=== PATIENT | female | born 1980 | race Caucasian/White ===

== ENCOUNTER 2020-03-04 15:53 | Emergency (ER) | payer MEDICAID, OTHER ==
[2016-01-04 16:52] VITALS: BP 113/74
[~2020-03-04] VITALS: Ht 170.2 cm; Wt 100.2 kg
[~2020-03-04 15:53] MED LIST: DULO60CA98 PO; LAMO100T5 PO; LAMO200T3 PO
--- NOTE | 2020-03-04 17:42 | PHYS DOC ---
Past History Past Medical History: Seizure Past Surgical History: , Hysterectomy, Tonsillectomy, Tubal ligation, Other Alcohol Use: Rarely Drug Use: None General Adult EDM: Chief Complaint: LACERATION/AVULSION HPI: HPI: Patient is a 40 year old female who presents with above hx and complaints of laceration . Pt. not in room on several checks. 1752.. Rechecked room at 1815 still not in room. Informed pt Eloped. Review of Systems: Review of Systems: Integument: Hx. Complaints of laceration Allergies: Allergies: Allergies Coded Allergies Type Severity Reaction Last Updated Verified levetiracetam Allergy Intermediate gi upset 03/04/20 No levofloxacin Allergy Intermediate rash 03/04/20 No Physical Exam: PE: Pt. eloped before exam or history Current Patient Data: Vital Signs: Vital Signs Date Time Temp Pulse Resp B/P (MAP) Pulse Ox O2 Delivery O2 Flow Rate FiO2 03/04/20 16:07 98.1 93 18 118/73 (88) 95 Room Air EKG: EKG: [] Radiology/Procedures: Radiology/Procedures: [] Heart Score: Risk Factors: Risk Factors: DM, Current or recent (<one month) smoker, HTN, HLP, family history of CAD, obesity. Risk Scores: Score 0 - 3: 2.5% MACE over next 6 weeks - Discharge Home Score 4 - 6: 20.3% MACE over next 6 weeks - Admit for Clinical Observation Score 7 - 10: 72.7% MACE over next 6 weeks - Early Invasive Strategies Course & Med Decision Making: Course & Med Decision Making Pertinent Labs and Imaging studies reviewed. (See chart for details) Pt. Eloped before exam or history [] Tawnya Disclaimer: Tawnya Disclaimer: This electronic medical record was generated, in whole or in part, using a voice recognition dictation system. Departure Departure: Disposition: 01 DC HOME SELF CARE/HOMELESS Condition: STABLE Referrals: HEIDI MATA MD (PCP) Tawnya Disclaimer This chart was dictated in whole or in part using Voice Recognition software in a busy, high-work load, and often noisy Emergency Department environment. It may contain unintended and wholly unrecognized errors or omissions. MARY STEELE MD Mar 04, 2020 17:42
== END 2020-03-04 17:30 | disposition home or self-care (01) ==
LOC: ER 15:53
DX: S61.412A Laceration without foreign body of left hand, initial encounter (principal); Z53.21 Procedure and treatment not carried out due to patient leaving prior to being seen by health care provider; Z88.1 Allergy status to other antibiotic agents; Z88.8 Allergy status to other drugs, medicaments and biological substances; W26.0XXA Contact with knife, initial encounter; Y93.89 Activity, other specified; Y92.89 Other specified places as the place of occurrence of the external cause; Y99.8 Other external cause status

== ENCOUNTER 2020-11-11 12:55 | Emergency (ER) | payer MEDICAID ==
[~2020-11-11] VITALS: Ht 170.2 cm; Wt 108.6 kg
--- NOTE | 2020-11-11 13:37 | PHYS DOC ---
Past History Past Medical History: Seizure Additional Past Medical Histor: celiac spru (PEYTON JOSEPH APRN) Past Surgical History: , Hysterectomy, Other Additional Past Surgical Histo: right leg (PEYTON JOSEPH APRN) Alcohol Use: None Drug Use: None (PEYTON JOSEPH APRN) General Adult EDM: Chief Complaint: TREMORS HPI: HPI: Patient is a 40-year-old female who presents to the ER today for tremors. Patient reports that she has had total body tremors that occur with purposeful movement for 1 month. Patient gives the example of when she tries to hold something she starts to get tremors. Patient reports that her tremors caused her to fall on October 27. She did break her leg following the fall was seen at [facility] and had surgery. She has a follow-up appointment on November 17 with orthopedic surgeon. Patient has dressings to her right leg and that leg is immobile at this time. Patient was seen yesterday at [facility] for similar complaints. She had blood drawn and was told to follow-up with a neurologist, and was given follow-up information on the neurologist. Patient states she wants to be evaluated because she continues to have tremors. While in the ER during my assessment patient does not have any tremors. Patient does have a history of seizures but states these tremors are not like her seizure activity. Patient denies lightheadedness, unilateral weakness, chest pain, shortness of breath. (PEYTON JOSEPH APRN) Review of Systems: Review of Systems: 14 body systems of the review of systems have been reviewed. See HPI for pertinent positive and negative responses, otherwise all other systems are negative, nonpertinent or noncontributory (PEYTON JOSEPH APRN) Allergies: Allergies: Allergies Coded Allergies Type Severity Reaction Last Updated Verified levetiracetam Allergy Intermediate gi upset 11/11/20 No levofloxacin Allergy Intermediate rash 11/11/20 No (PEYTON JOSEPH APRN) Physical Exam: PE: Constitutional: Well developed, well nourished, no acute distress, non-toxic appearance, no visible tremors [] HENT: Normocephalic, atraumatic, bilateral external ears normal, nose normal. [] Eyes: PERRLA, 3 mm bilaterally, EOMI, conjunctiva normal, no discharge. [] Neck: Normal range of motion, no tenderness, supple, no stridor. [] Cardiovascular:Heart rate regular rhythm, no murmur [] Lungs & Thorax: Bilateral breath sounds clear to auscultation [] Abdomen: Bowel sounds normal, soft, no tenderness, no masses, no pulsatile masses. [] Skin: Warm, dry, no erythema, no rash. Right leg: Patient has dressings noted to right leg from knee down to ankle. The dressings are intact. There are no signs of infection (no redness, warmth, drainage). Patient does have 2+ pitting edema to that extremity with ecchymosis given the stage of ecchymosis is most likely from the surgical procedure. 2+ DP and PT pulses. Right right lower extremity is neurologically intact with limited range of motion of knee due to surgical procedure, patient able to move ankle and toes. [] Back: No tenderness[] Extremities: No tenderness, no cyanosis, no clubbing, ROM intact, 2+ pitting edema to right lower extremity. [] Neurologic: Alert and oriented X 3, normal motor function, normal sensory function, no focal deficits noted. GCS of 15, negative pronator drift, normal ozgu-oc-flaf of left extremity (right extremity not tested due to immobility), normal zhbdgh-my-ammv test with no tremors, no signs of ataxia, no rest tremor, no rigidity with movements or no bradykinesia, cranial nerves II through XII intact, normal strength and sensation, normal speech [] Psychologic: Affect normal, judgement normal, mood normal. [] (PEYTON JOSEPH APRN) Current Patient Data: Vital Signs: Vital Signs Date Time Temp Pulse Resp B/P (MAP) Pulse Ox O2 Delivery O2 Flow Rate FiO2 11/11/20 13:12 98.1 85 18 107/62 95 Room Air (PEYTON JOSEPH APRN) EKG: EKG: [] (PEYTON JOSEPH APRN) Radiology/Procedures: Radiology/Procedures: [] (PEYTON JOSEPH APRN) Heart Score: C/O Chest Pain: No Risk Factors: Risk Factors: DM, Current or recent (<one month) smoker, HTN, HLP, family history of CAD, obesity. Risk Scores: Score 0 - 3: 2.5% MACE over next 6 weeks - Discharge Home Score 4 - 6: 20.3% MACE over next 6 weeks - Admit for Clinical Observation Score 7 - 10: 72.7% MACE over next 6 weeks - Early Invasive Strategies (PEYTON JOSEPH APRN) Course & Med Decision Making: Course & Med Decision Making Pertinent Labs and Imaging studies reviewed. (See chart for details) Patient is a 40-year-old female being evaluated for tremors that occur to her entire body with purposeful movements that has been going on for 1 month. Patient has already been evaluated at [facility] yesterday for the symptoms and was told to follow-up with neurology. Lab work was performed in the ER. Patient does not have any focal neuro deficits. Lab work and CT scan unremarkable. Patient to follow-up with neurology at [facility] as previously set up. I discussed with patient all findings and diagnostic testing as well as the need to follow-up with PCP for further evaluation and treatment or return to the ER if any new or worsening symptoms. Strict return precautions were also discussed at length. Patient voiced understanding, Dr. Bach also discussed bhavya irizarry's case with her. Patient is hemodynamically stable at the time of disposition.. (PEYTON JOSEPH APRN) Course & Med Decision Making Spoke to patient, casey at bedside, (patient consents to his/her/their knowledge and involvement in pts' medical care) regarding her ED care and concern for tremors. Patient with no neurologic deficits on physical exam. Denies any head injury or daily alcohol use. States she feels as if her legs are going to give out and is scared to go home. Has a wheelchair she has been using to get around. [place] of her right knee and ankle clean/dry/intact with no rash or purulent drainage, healing appropriately. CT head with no acute process. Patient reports she used to follow with neurology Dr. Briseno but states he "canceled my disability," and follows with Dr. Mata as pcp for the epilepsy (reports "tonic-clonic" seizures). Patient was educated that there can be a broad differential involved in sudden onset weakness in extremities -would carlos garza benefit from MRI, neurology and to consider rheumatology outpt, nonemergent, evaluation. Patient with decision-making capacity, no neurologic deficits on exam. Patient was upset because she was told to go to the emergency department"to figure it out." Patient reassured and there are no evident signs of life or limb threatening injury. Patient does not feel as though she needs any long-term care placement. All of her questions were answered. (TORO BACH DO) Tawnya Disclaimer: Tawnya Disclaimer: This electronic medical record was generated, in whole or in part, using a voice recognition dictation system. (PEYTON JOSEPH APRN) Departure Departure: Impression: Primary Impression: Tremor Disposition: HOME / SELF CARE / HOMELESS Condition: GOOD Referrals: HEIDI MATA MD (PCP) ERICA BOB MD Patient Instructions: Tremor Additional Instructions: Thank you for choosing [facility] and allowing me to participate in your care. As we have discussed, your findings indicate no acute findings. Your CT head was negative and your blood work was unremarkable.. As we have discussed, the treatment includes following up with neurology for further testing.. Please follow up with your primary care provider tomorrow regarding your ER visit. If your symptoms worsen or you develop unilateral weakness, dizziness, lightheadedness, falls, speech difficulties, severe headache, worsening of your tremors, please return. Please follow-up with orthopedic surgeon at [facility] on November 17 as scheduled regarding your right leg surgery. EMERGENCY DEPARTMENT GENERAL DISCHARGE INSTRUCTIONS Thank you for coming to [facility] (ED) today and trusting us with you care. We trust that you had a positivie experience in our Emergency Department. If you wish to speak to the department management, you may call the director at [phone]. YOUR FOLLOW UP INSTRUCTIONS ARE FOLLOWS: 1. Do you have a private Doctor? If you do not have a private doctor, please ask for a resource list of physicians or clinics that may be able to assist you with follow up care. 2. The Emergency Physician has interpreted your x-rays. The X-Ray specialist will also review them. If there is a change in the findings, you will be notified in 48 hours when at all possible. 3. A lab test or culture has been done, your results will be reviewed and you will be notified if you need a change in treatment. ADDITIONAL INSTRUCTIONS AND INFORMATION: 1. Your care today has been supervised by a physician who is specially trained in emergency care. Many problems require more than one evaluation for a complete diagnosis and treatment. We recommend that you schedule your follow up appointment as recommended to ensure complete treatment of you illness or injury. If you are unable to obtain follow up care and continue to have a problem, or if your condition worsens, we recommend that you return to the ED. 2. We are not able to safely determine your condition over the phone nor are we able to give sound medical advice over the phone. For these safety reasons, if you call for medical advice we will ask you to come to the ED for further evaluation. 3. If you have any questions regarding these discharge instructions please call the ED at [phone]. SAFETY INFORMATION: In the interest of safety, wellness, and injury prevention; we encourage you to wear your sealbelt, if you smoke; quite smoking, and we encourage family to use a protective helmet for bicycling and other sporting events that present an increased risk for head injury. IF YOUR SYMPTOMS WORSEN OR NEW SYMPTOMS DEVELOP, OR YOU HAVE CONCERNS ABOUT YOUR CONDITION; OR IF YOUR CONDITION WORSENS WHILE YOU ARE WAITING FOR YOUR FOLLOW UP APPOINTMENT; EITHER CONTACT YOUR PRIMARY CARE DOCTOR, THE PHYSICIAN WHOSE NAME AND NUMBER YOU WERE GIVEN, OR RETURN TO THE ED IMMEDIATELY. PEYTON JOSEPH APRN Nov 11, 2020 13:37 TORO BACH DO Nov 11, 2020 16:49
[2020-11-11 14:21] LABS: BASO % 0 % (0-3); EOS # 0.4 x10^3/uL (0.0-0.7); EOS % 4 % (0-3); HEMATOCRIT 37.1 % (36.0-47.0); HEMOGLOBIN 12.2 g/dL (12.0-15.5); LYMPH # 3.4 x10^3/uL (1.0-4.8); LYMPH % 34 % (24-48); MEAN CORPUSCULAR HEMOGLOBIN 31 pg (25-35); MEAN CORPUSCULAR HGB CONC 33 g/dL (31-37); MEAN CORPUSCULAR VOLUME 94 fL (79-100); MONO # 0.8 x10^3/uL (0.0-1.1); MONO % 8 % (0-9); NEUT # 5.3 x10^3uL (1.8-7.7); NEUT % 53 % (31-73); PLATELET COUNT 411 x10^3/uL (140-400); RED BLOOD COUNT 3.94 x10^6/uL (3.50-5.40); WHITE BLOOD COUNT 9.9 x10^3/uL (4.0-11.0)
[2020-11-11 14:31] LABS: ALBUMIN 2.8 g/dL (3.4-5.0); ALBUMIN/GLOBULIN RATIO 0.9 (1.0-1.7); ALK PHOS 99 U/L (46-116); ALT (SGPT) 28 U/L (14-59); AST (SGOT) 39 U/L (15-37); BLOOD UREA NITROGEN 19 mg/dL (7-20); BUN/CREATININE RATIO 13 (6-20); CALCIUM 8.5 mg/dL (8.5-10.1); CARBON DIOXIDE 27 mmol/L (21-32); CREATININE 1.5 mg/dL (0.6-1.0); GFR 38.5; GLUCOSE 119 mg/dL (70-99); TOTAL BILIRUBIN 0.4 mg/dL (0.2-1.0)
--- NOTE | 2020-11-11 15:07 | RAD ---
CT head without contrast: Reason for examination: Tremor for one month. Comparison is made to previous study dated 04/05/2004. Helical images were obtained through the brain with no contrast administered. Exposure: One or more of the following individualized dose reduction techniques were utilized for thi s examination: 1. Automated exposure control 2. Adjustment of the mA and/or kV according to patient size 3. Use of iterative reconstruction technique. Ventricular systems are symmetric and not dilated. No midline shift is seen. There is no evidence of intracranial hemorrhage, acute infarct, mass or edema. There is some decreased density in the left ce rebellar hemisphere anteriorly which was present previously and may reflect some beam hardening artif act. No abnormalities are seen at the orbits. The paranasal sinuses and mastoid air cells are clear. No acute skull abnormality is seen. IMPRESSION: No acute intracranial abnormality evident. Electronically signed by: Bailey Joseph MD (11/11/2020 3:04 PM) [id number]
[2020-11-11 15:08] LABS: POTASSIUM ISTAT 3.6 mmol/L (3.5-5.0); SODIUM ISTAT 141 mmol/L (135-145)
[2020-11-11 15:15] VITALS: BP 108/54
== END 2020-11-11 15:50 | disposition home or self-care (01) ==
LOC: ER 12:55
DX: R25.1 Tremor, unspecified (principal); Z88.1 Allergy status to other antibiotic agents
CPT/HCPCS: 36415; 70450; 80047; 80053; 85025; 99284-25

== ENCOUNTER → 2020-11-30 | Outpatient (CLI) | payer MEDICAID ==
[2020-11-11 15:15] VITALS: BP 108/54
[~2020-11-30] MED LIST changes: +ASCO500C PO; +BACL10TA PO; +BUSP30TA PO; +CELE100C PO; +CHOL10004 PO; +DIVA500T2 PO; +LEVO50TA PO; +MULT-445 PO; +NARA1TAB4 PO; +OMEP20TA63 PO; +OXYC-325 PO; +OXYC10TA PO; +PANT40TA3 PO; +POTA10TA5 PO; +PREG75CA PO; +QUET300T5 PO; +TORS10TA3 PO; +TRAZ150T49 PO; +biotene PO; +calcium PO; +tagamet PO; +vitamin b12 PO
--- NOTE | 2020-11-30 16:12 | RAD ---
EXAM: Right tibia and fibula, 2 views. HISTORY: Fracture fixation. COMPARISON: 11/09/2020 FINDINGS: 2 views of the right tibia and fibula are obtained. There is internal fixation of a mid to distal tibial diaphyseal fracture within intramedullary oneal. There is approximately 1 cortical width displacement along the fracture line. There is also a nondisplaced fracture of the medial malleolus. There are segmental fractures involving the proximal to mid and mid distal fibular diaphysis, with ap proximately 1 cortical width displacement along the fracture lines. There are stable anchors within t he lateral malleolus. There is soft tissue swelling. IMPRESSION: 1. Internal fixation of a tibial diaphyseal fracture. 2. Mildly displaced fibular fractures and nondisplaced medial malleolar fracture. Electronically signed by: Yanely Abraham MD (11/30/2020 4:09 PM) [id number]
== END ==
LOC: RAD 14:21
PROVIDERS: ATTEND Physician Assistant
DX: S82.54XA Nondisplaced fracture of medial malleolus of right tibia, initial encounter for closed fracture (principal); S89.101A Unspecified physeal fracture of lower end of right tibia, initial encounter for closed fracture; X58.XXXA Exposure to other specified factors, initial encounter; Y93.89 Activity, other specified; Y92.89 Other specified places as the place of occurrence of the external cause; Y99.8 Other external cause status
CPT/HCPCS: 73590

== ENCOUNTER → 2020-12-01 | Day surgery (SDC) | payer MEDICAID ==
[~2020-12-01] MED LIST changes: +IPRATRPIUM/ALBUTEROL 0.5/2.5MG 3 ML NEBU. NEB PRN; +IV RINGERS SOLUTION,LACTATED 1,000 ML IV SCH; +LIDOCAINE 2% PF 5 ML VIAL. ONE; +MIDAZOLAM HCL PF 2 MG/2 ML VIAL. IV ONE; +ONDANSETRON PF 4 MG/2 ML VIAL. IV PRN; +PROPOFOL 10,000 MCG/ML (20ML) VIAL IV ONE
--- NOTE | 2020-12-01 10:38 | NUR ---
lab notified this nurse of negative COVID-19 rapid test
[2020-12-01 11:20] VITALS: BP 115/68
--- NOTE | 2020-12-04 17:11 | PATHOLOGY ---
[facility] Accession Number: [id number] . 01 Material submitted: . duodenum - DUODENUM BX X4 . 01 Clinical history: . GERD EG . 02 Diagnosis: Duodenal biopsies: - Malabsorption pattern with partial villous atrophy. See comment. (JPM:lilliana; 12/04/2020) S 12/04/2020 0856 Local . 02 Comment: Sections of the duodenal biopsy reveal segments of duodenal and small intestine mucosa showing partial villous atrophy, and chronic inflammation with increased intraepithelial lymphocytes. The changes are nonspecific, but may reflect conditions such as partially treated celiac sprue, bacterial overgrowth, hypersensitivity reaction to non-gluten proteins, tropical sprue, or protein calorie malnutrition. Correlate clinically. (JPM:lilliana; 12/04/2020) . 02 Electronically signed: . Jesse Valerio MD, Pathologist NPI- [id number] . 01 Gross description: . The specimen is received in formalin, labeled "Neisha Lemus, duodenum BX x4" and consists of multiple resendez soft irregular tissue aggregating 0.7 x 0.6 x 0.2 cm which are submitted in toto in A1.(MASHPEE; 12/01/2020) DKA/DKA 12/04/2020 0853 Local . 02 Pathologist provided ICD-10: K29.40 . 02 CPT . 349180 Specimen Comment: A courtesy copy of this report has been sent to [phone], [phone] Specimen Comment: [id number] Specimen Comment: Report sent to DR. MATA Performed at: [address], [place], [place] [id number] MD Alexander Rivera MD Phone: [phone] Performed at: 02 [facility] [address], [place] [id number] MD Jesse Valerio MD Phone: [phone]
== END | disposition home or self-care (01) ==
LOC: SURG 09:44 → MERGE 10:30
PROVIDERS: ATTEND Internal Medicine Gastroenterology
DX: R13.10 Dysphagia, unspecified (principal); R12 Heartburn; K44.9 Diaphragmatic hernia without obstruction or gangrene; K29.40 Chronic atrophic gastritis without bleeding; K31.89 Other diseases of stomach and duodenum; K21.9 Gastro-esophageal reflux disease without esophagitis; F17.210 Nicotine dependence, cigarettes, uncomplicated; Z79.899 Other long term (current) drug therapy; Z98.890 Other specified postprocedural states; Z20.822 Contact with and (suspected) exposure to COVID-19; Z88.1 Allergy status to other antibiotic agents
CPT/HCPCS: 43239; 43450; 87426; 88305; C9803; J2001; J2704; J7120; U0003; 43249; U0005

== ENCOUNTER → 2021-01-12 | Outpatient (CLI) | payer MEDICAID ==
[2020-12-01 11:20] VITALS: BP 115/68
[~2021-01-12] MED LIST changes: -IPRATRPIUM/ALBUTEROL 0.5/2.5MG 3 ML NEBU. NEB PRN; -IV RINGERS SOLUTION,LACTATED 1,000 ML IV SCH; -LIDOCAINE 2% PF 5 ML VIAL. ONE; -MIDAZOLAM HCL PF 2 MG/2 ML VIAL. IV ONE; -ONDANSETRON PF 4 MG/2 ML VIAL. IV PRN; -PROPOFOL 10,000 MCG/ML (20ML) VIAL IV ONE
--- NOTE | 2021-01-12 18:03 | RAD ---
EXAM: XR RT TIBIA+FIBULA 01/12/2021 9:43 AM CLINICAL INDICATION: Postop follow-up surgery for fracture November COMPARISON: Right tibia and fibula radiograph 11/30/2020 TECHNIQUE: 2 views of the right tibia and fibula FINDINGS: There is an intramedullary nail traversing a tibial shaft fracture. Hardware is unchanged without evidence of complication. The minimally displaced oblique fracture of the tibial shaft is unc hanged in alignment. Fracture lines are less conspicuous and there is early callus formation. The min imally displaced and angulated segmental fibular fractures in the proximal and distal third of the fi bular shaft are unchanged in alignment with mild callus formation. A medial malleolus fracture is les s conspicuous. There are suture anchors in the lateral malleolus. IMPRESSION: 1. Healing internally fixed tibial fracture and medial malleolar fracture. 2. Healing segmental fibular fractures. 3. Suture anchors in the lateral malleolus. Electronically signed by: Gay Muhammad MD (01/12/2021 6:01 PM) [id number]
== END ==
LOC: RAD 09:36
PROVIDERS: ATTEND Physician Assistant
DX: S82.221D Displaced transverse fracture of shaft of right tibia, subsequent encounter for closed fracture with routine healing (principal); S82.51XD Displaced fracture of medial malleolus of right tibia, subsequent encounter for closed fracture with routine healing; S82.491D Other fracture of shaft of right fibula, subsequent encounter for closed fracture with routine healing; M89.8X6 Other specified disorders of bone, lower leg; L84 Corns and callosities; X58.XXXD Exposure to other specified factors, subsequent encounter
CPT/HCPCS: 73590

== ENCOUNTER → 2021-02-09 | Outpatient (CLI) | payer MEDICAID ==
[2020-12-01 11:20] VITALS: BP 115/68
--- NOTE | 2021-02-09 11:34 | RAD ---
EXAM: Right tibia and fibula, 2 views. HISTORY: Fracture follow-up. Pain. COMPARISON: 01/12/2021 FINDINGS: 2 views of the right tibia and fibula are obtained. There is internal fixation of a mid to distal tibial diaphyseal fracture within intramedullary oneal. There is approximately 1 cortical width displacement along the fracture line. There has been no significant interval healing compared to the prior study. There are mildly displaced proximal and distal fibular diaphyseal fractures, both of whi ch demonstrates slight interval healing compared to the prior exam. There are surgical anchors within the lateral malleolus. 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 IMPRESSION: 1. No significant interval healing of a tibial diaphyseal fracture status post internal fixation. 2. Minimal interval healing of fibular diaphyseal fractures. Electronically signed by: Yanely Abraham MD (02/09/2021 11:31 AM) [id number]
== END ==
LOC: RAD 14:20
PROVIDERS: ATTEND Physician Assistant
DX: S82.491D Other fracture of shaft of right fibula, subsequent encounter for closed fracture with routine healing (principal); M89.8X6 Other specified disorders of bone, lower leg; X58.XXXD Exposure to other specified factors, subsequent encounter; Z98.890 Other specified postprocedural states
CPT/HCPCS: 73590

== ENCOUNTER → 2021-02-23 | Outpatient (CLI) | payer MEDICAID ==
[2020-12-01 11:20] VITALS: BP 115/68
--- NOTE | 2021-02-23 09:26 | RAD ---
XR KNEE_RT 1-2 VIEWS, XR RT TIBIA+FIBULA , XR KNEE_AP BILAT STANDING History: Right lower leg pain. Right knee pain Comparison: Tib-fib 11/30/2020 Technique: AP standing view of the bilateral knees. [place] and lateral view of the right knee. AP an d lateral views of left tibia and fibula. 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 Postsurgical features from intramedullary nail fixation of the right tibia with proximal distal interlocking screws. Suture retention anchors at the distal fibula. Oblique fracture distal right tibial diaphysis with osteoblastic remodeling of the fracture margins and subtle callus at the lateral cortex. Decreased conspicuity of the medial mal leolus fracture lucency. Redemonstrated proximal and distal fibular diaphysis fractures with callus r edemonstrated although persistent fracture lucencies. No right knee joint space narrowing. No knee effusion. Normal alignment. Single view of the contralateral left knee demonstrates normal alignment and preservation of the medi al and lateral compartments. Impression: 1. Right tibia fracture status post internal fixation and right fibular fractures with evidence of s ubtle healing changes. 2. No acute findings in the right knee. Electronically signed by: Yaya Mcfarlane MD (02/23/2021 9:23 AM) [id number]
== END ==
LOC: RAD 08:41
PROVIDERS: ATTEND Physician Assistant
DX: S82.51XA Displaced fracture of medial malleolus of right tibia, initial encounter for closed fracture (principal); S82.244 Nondisplaced spiral fracture of shaft of right tibia; X58.XXXA Exposure to other specified factors, initial encounter; Y93.89 Activity, other specified; Y92.89 Other specified places as the place of occurrence of the external cause; Y99.8 Other external cause status
CPT/HCPCS: 73560; 73565; 73590

== ENCOUNTER → 2021-03-26 | Outpatient (CLI) | payer MEDICAID ==
[2020-12-01 11:20] VITALS: BP 115/68
[~2021-03-26] MED LIST changes: +POTA-112 PO; -POTA10TA5 PO
--- NOTE | 2021-03-26 16:35 | RAD ---
EXAM: RIGHT TIBIA/FIBULA 2 VIEWS. HISTORY: Fracture follow-up. COMPARISON: 02/23/2021. FINDINGS: A distal tibial diaphyseal fracture is fixed by an antegrade intramedullary nail fixed prox imally and distally by 2 screws. Alignment is near-anatomic. There is developing bridging callus. A segmental fracture of the fibular diaphysis is in unchanged alignment. There is maturing bridging c allus at both fracture lines. Changes of ligamentous repair are noted at the lateral malleolus. The joint spaces and alignment of t he knee and ankle appear maintained. IMPRESSION: 1. Healing tibial and fibular fractures in unchanged alignment as above. Electronically signed by: Hailey Gonzales MD (03/26/2021 4:33 PM) [id number]
== END ==
LOC: RAD 14:19
PROVIDERS: ATTEND Physician Assistant
DX: S89.101D Unspecified physeal fracture of lower end of right tibia, subsequent encounter for fracture with routine healing (principal); S82.491D Other fracture of shaft of right fibula, subsequent encounter for closed fracture with routine healing; L84 Corns and callosities; X58.XXXD Exposure to other specified factors, subsequent encounter; Z98.890 Other specified postprocedural states
CPT/HCPCS: 73590

== ENCOUNTER → 2021-07-25 | Outpatient (CLI) | payer MEDICAID ==
[2020-12-01 11:20] VITALS: BP 115/68
--- NOTE | 2021-07-26 08:20 | RAD ---
XR EXAM OF ANKLE_RIGHT 3VIEWS History: Reason: CHRONIC PAIN, TIB-FIB FRACTURE, OCTOBER 2020 / Spl. Instructions: / History: Technique: 3 views right ankle. Comparison: March 26, 2021 Findings: Internal fixation right distal tibial fracture with intramedullary oneal and screw fixation. There is i nterval healing compared to prior. Fracture line still evident. Healed right distal fibular fracture. Postoperative changes of the lateral malleolus. Symmetric ankle mortise. No acute fracture. Impression: 1. Internal fixation right distal tibial fracture. 2. Healed distal fibular fracture. Electronically signed by: Adrián Wilkinson DO (07/26/2021 8:18 AM) [id number]
--- NOTE | 2021-07-26 08:22 | RAD ---
XR KNEE 3 VIEWS_RT, XR KNEE_AP BILAT STANDING History: Reason: CHRONIC PAIN, TIB-FIB FRACTURE, OCTOBER 2020 / Spl. Instructions: / History: Technique: AP standing view bilateral knees and 2 additional views of the right knee. Comparison: February 23, 2021 Findings: Internal fixation right tibia. Healed right proximal fibular fracture. No dislocation. No acute fract ure. No significant knee joint effusion. Impression: 1. No acute osseous abnormality. 2. Internal fixation right tibia. 3. Healed right proximal fibular fracture. Electronically signed by: Adrián Wilkinson DO (07/26/2021 8:20 AM) [id number]
== END ==
LOC: RAD 14:41
PROVIDERS: ATTEND Orthopaedic Surgery Sports Medicine
DX: S82.301D Unspecified fracture of lower end of right tibia, subsequent encounter for closed fracture with routine healing (principal); M25.561 Pain in right knee; Z96.698 Presence of other orthopedic joint implants; X58.XXXD Exposure to other specified factors, subsequent encounter
CPT/HCPCS: 73562; 73565; 73610